=== PATIENT | male | born 1985 | race Two or more races ===

== ENCOUNTER 2024-10-03 20:44 | Inpatient (IN) | payer OTHER ==
[2024-10-03 21:14] VITALS: BMI 24.4
[2024-10-03] MEDS ORDERED: MAGNESIUM HYDROX 2400MG/30ML ORAL SUSPENSION 30 ML CUP PO PRN (21:32)
[2024-10-03] MEDS ORDERED: MAG HYDROX/AL HYDROX/SIMETH 30 ML UNIT-DOSE CUP PO PRN (21:32)
[2024-10-03] MEDS ORDERED: ACETAMINOPHEN 325 MG TABLET (FP) PO PRN (21:32)
[2024-10-03] MEDS ORDERED: BENZOCAINE/MENTHOL (CHLORASEPTIC ) LOZENGE MM PRN (21:32)
[2024-10-03] MEDS ORDERED: BENZONATATE 200 MG CAPSULE PO PRN (21:32)
[2024-10-03] MEDS ORDERED: ONDANSETRON *ODT* 4 MG TABLET SL PRN (21:32)
[2024-10-03] MEDS ORDERED: POLYETHYLENE GLYCOL (HEALTHYLAX) 3350 17 GM PACKET PO PRN (21:32)
[2024-10-03] MEDS ORDERED: LOPERAMIDE HCL 2 MG CAPSULE PO PRN (21:32)
[2024-10-03] MEDS ORDERED: BISMUTH SUBSALICYLATE 524 MG/30 ML PO PRN (21:32)
[2024-10-03] MEDS ORDERED: guaiFENesin 600 MG TABLET.ER (FP) PO PRN (21:32)
[2024-10-03] MEDS ORDERED: IBUPROFEN 400 MG TABLET (FP) PO PRN (21:32)
[2024-10-03] MEDS ORDERED: DICYCLOMINE HCL 10 MG CAPSULE PO PRN (21:32)
[2024-10-03] MEDS ORDERED: NICOTINE POLACRILEX 4 MG GUM BUC PRN (21:32)
[2024-10-03] MEDS ORDERED: NALOXONE (NARCAN) HCL 4 MG/0.1 ML SPRAY NS PRN (21:32)
[2024-10-03] MEDS ORDERED: MELATONIN 5 MG TABLETS ONE (22:12)
[2024-10-03] MEDS ORDERED: methaDONE HCL 10 MG TABLET (FOR DETOX USE ONLY) ONE (22:12)
[2024-10-03] MEDS: THIAMINE 100 MG TABLET PO SCH (22:20)
[2024-10-03] MEDS: methaDONE HCL 10 MG TABLET PO ONE (22:20)
[2024-10-03] MEDS: MELATONIN 5 MG TABLETS PO SCH (22:20)
[2024-10-04] MEDS: PRENATAL VITAMINS W/ FOLIC ACID TABLET (FP) PO SCH (09:53)
[2024-10-04] MEDS: methaDONE HCL 40 MG DISPERSABLE TABLET PO SCH (09:56)
[2024-10-04] MEDS: NICOTINE 14 MG/24 HOURS TOPICAL PATCH TD SCH (10:03)
[2024-10-04 11:47] LABS: HEMATOCRIT 38.5 % (40.1-51.0); HEMOGLOBIN 12.1 g/dL (13.7-17.5); MCHC 31.4 g/dl (32.3-36.5); MEAN CELL VOLUME 89.7 fl (79.0-92.2); MEAN PLT VOLUME 10.4 fl (9.4-12.4); PLATELET COUNT 235 x10^3/uL (163-337); RDW 14.3 % (12.0-15.6)
[2024-10-04 12:08] LABS: CHLORIDE 105 mmol/L (98-107); POTASSIUM 4.1 mmol/L (3.5-5.1); SODIUM 138 mmol/L (136-145)
[2024-10-04 12:25] LABS: ALBUMIN 3.1 g/dl (3.4-5.0); ANION GAP 5 mmol/L (4-13); CALCIUM 9.3 mg/dL (8.5-10.1); CO2 28 mmol/L (21-32); GLUCOSE,RANDOM 91 mg/dL (74-106)
[2024-10-04 12:27] LABS: SGOT/AST 70 U/L (15-37); SGPT/ALT 141 U/L (13-61)
[2024-10-04 12:28] LABS: CREATININE 0.8 mg/dL (0.55-1.3)
[2024-10-04 12:29] LABS: BILIRUBIN,TOTAL 0.4 mg/dL (0.2-1); TOT PROT 6.5 g/dl (6.4-8.2)
[2024-10-04 12:30] LABS: ALK PHOS 85 U/L (45-117)
[2024-10-04] MEDS: IBUPROFEN 600 MG TABLET (FP) PO PRN (22:36)
[2024-10-05] MEDS: methaDONE HCL 10 MG TABLET PO ONE (10:57)
[2024-10-05] MEDS: METHOCARBAMOL 500 MG TABLET PO PRN (21:59)
[2024-10-05] MEDS: hydrOXYzine PAMOATE 25 MG CAPSULE (FP) PO PRN (21:59)
[2024-10-06] MEDS: cloNIDine HCL 0.1 MG TABLET PO PRN (22:05)
[2024-10-07] MEDS: methaDONE HCL 10 MG TABLET PO ONE (09:37)
[2024-10-07 11:57] LABS: SGOT/AST 38 U/L (15-37); SGPT/ALT 106 U/L (13-61)
[2024-10-08 20:43] VITALS: RESP 16
[2024-10-09] MEDS: methaDONE HCL 10 MG TABLET PO ONE (09:57)
[2024-10-09 11:15] VITALS: BP 134/65; PULSE 83; TEMP 98.9
== END 2024-10-09 10:13 | disposition home or self-care (01) | DRG 773 ==
LOC: YASAS 20:44 → Y3N 22:39 → Y6N 22:43
PROVIDERS: ADMIT Allergy & Immunology; ATTEND Allergy & Immunology
PROC: HZ2ZZZZ Detoxification Services for Substance Abuse Treatment (ICD-10-PCS; principal; 2024-10-03)
DX: F11.23 Opioid dependence with withdrawal (principal); F14.20 Cocaine dependence, uncomplicated; F12.20 Cannabis dependence, uncomplicated; F17.210 Nicotine dependence, cigarettes, uncomplicated; F19.24 Other psychoactive substance dependence with psychoactive substance-induced mood disorder; D64.9 Anemia, unspecified; B18.2 Chronic viral hepatitis C; R74.01 Elevation of levels of liver transaminase levels; R79.89 Other specified abnormal findings of blood chemistry
CPT/HCPCS: 36415; 80053; 80305; 80307; 84450; 84460; 85027; 86780; 93005; 93010